=== PATIENT | female | born 1995 | race Caucasian/White ===

== ENCOUNTER 2021-09-06 19:49 | Emergency (ER) | payer MEDICAID, SELFPAY ==
[2021-09-06 19:56] VITALS: BP 136/107; PULSE 89; RESP 20; TEMP 36.2; O2SAT 98
--- NOTE | 2021-09-06 20:00 | DI.RAD_ITS ---
Exam(s) XR SHOULDER LT COMPLETE 2+V EXAM: XR SHOULDER LT COMPLETE 2+V CLINICAL HISTORY: trauma. TECHNIQUE: 2D digital imaging was performed. COMPARISON: No exams were available for comparison FINDINGS: There is a nondisplaced fracture of the greater tuberosity of the humeral head. Small 2 millimeter f racture fragment is seen just above this level. No dislocation of glenohumeral joint. AC joint and clavicle appear unremarkable as does the chromium and coracoid process. IMPRESSION: Nondisplaced fracture of the greater tuberosity of the proximal humerus DATA REPOSITORY: RADIATION DOSE DELIVERED:
--- NOTE | 2021-09-06 20:01 | ED.GENADUL_ITS ---
Discharge Plan Disposition Patient Disposition: HOME Condition: Good Discharge Details Clinical Impression: Closed fracture of greater tuberosity of humerus Primary Care Provider: Unknown,Unknown ED Provider: Priyank Carrillo Meds and New Rx's Prescriptions: New lidocaine 5 % Adhesive Patch,Medicated 1 patch topical DIRECTED Qty: 10 RF: 0 Continued diltiazem HCl 30 mg Tablet 30 mg PO DAILY RF: 0 naproxen 500 mg Tablet 500 mg PO BID RF: 0 Discharge Instructions Additional Instructions: Wear the sling and try not to use your left arm until seen by orthopedics. Call the orthopedic office Wednesday to arrange for follow-up. Ice on and off to help with pain. Lidocaine patches as directed. Continue your naproxen. May also use Tylenol. Return to ED for numbness or weakness involving the arm, discoloration of the arm, other concerns. Stand Alone Forms: Work Release Referrals: [facility] [Provider Group] Medical Decision Making X-ray of the left shoulder obtained. Evidence of greater tuberosity fracture seen. Some suggestion of anterior displacement of the humeral head on Y view. However, radiology feels no evidence of subluxation or dislocation. Case discussed with orthopedic, Dr. Ashford, who reviewed the films and agrees with radiology read. Patient placed in sling and Dr. Ashford requesting limited use of left upper extremity until evaluated by him. Toradol IM given. Lidocaine patch placed on shoulder. Patient will follow up with orthopedic this coming week. Return to ED for any neurologic changes to the arm, discoloration of pain distally, other concerns. HPI General Mode of arrival: ambulatory . Date/Time Provider Initiated Documentation: 09/06/21 20:01 . Limitations to Documentation: no limitations . Information obtained by: patient and RN notes reviewed . HPI Narrative: Patient presents to the ED with left shoulder pain. Patient injured her shoulder 2 days ago while doing a back flip. She has had pain and limited range of motion since then. She is right-hand dominant. She has been trying to work but the pain has become less tolerable. She is afraid she dislocated her shoulder. She denies head or neck injury. She denies chest pain or shortness of breath. She denies any numbness, weakness, distal pain in the left upper extremity. Related Data Home Medications Medication Instructions Recorded Confirmed diltiazem HCl 30 mg PO DAILY 09/06/21 09/06/21 lidocaine 1 patch TOPICAL DIRECTED #10 ea 09/06/21 naproxen 500 mg PO BID 09/06/21 09/06/21 Previous Rx's Medication Instructions Recorded lidocaine 1 patch TOPICAL DIRECTED #10 ea 09/06/21 Allergies Allergy/AdvReac Type Severity Reaction Status Date / Time No Known Allergies Allergy Unverified 09/06/21 19:58 General Stated Complaint: Orthopedic BRODERICK: 3 Review of Systems Narrative: As documented in HPI otherwise negative as below. Const: no fever, chills, weakness Resp: no cough, SOB, pleuritic pain CV: no CP, diaphoresis, edema, syncope GI: no abdominal pain, nausea, vomiting, diarrhea Neuro: no headache, numbness, focal weakness, confusion PFSH Active Problem List Closed fracture of greater tuberosity of humerus (Acute) Medical History Rapid palpitations Social History Smoking/Tobacco Use Status: Never Smoking risk assessment performed?: Yes Alcohol Intake: current Alcohol Intake frequency: a few times a month Alcohol type: beer Drug use: Never Substance use type: does not use Do you feel safe at home: Yes Do you feel safe in your relationship?: Yes Exam Narrative Exam Narrative: Const: WDWN female in NAD. HEENT: NC/AT. Normal facial exam. Eyes: Normal conjunctiva and sclera. Neck: Supple. Trachea midline. Normal ROM. Lungs: Normal respiratory effort. Cor: RRR. Good radial pulses. Neuro: A+O x 3. Normal speech, mentation, gait. Cranial nerves II - XII grossly intact. No gross motor or sensory deficit. Ext: No C/C/E. Left shoulder with significant limitation in range of motion. Tenderness to palpation around the joint itself. No obvious bruising. Swelling and fullness anteriorly. No tenderness along the clavicle. Neurovascularly intact distally. Course Vital Signs Vital signs: Vital Signs Temperature 97.2 F L 09/06/21 19:56 Pulse 89 09/06/21 19:56 Respiratory Rate 20 09/06/21 19:56 Blood Pressure 136/107 H 09/06/21 19:56 Pulse Oximetry 98 09/06/21 19:56 Temperature 97.2 F L 09/06/21 19:56 Temperature Source Temporal Artery Scan 09/06/21 19:56 Pulse 89 09/06/21 19:56 Respiratory Rate 20 09/06/21 19:56 Blood Pressure 136/107 H 09/06/21 19:56 Blood Pressure Position Sitting 09/06/21 19:56 Pulse Oximetry 98 09/06/21 19:56 Oxygen Delivery Method Room Air 09/06/21 19:56 Oxygen Flow Rate 0 09/06/21 19:56 Pain Level 0 09/06/21 19:56
--- NOTE | 2021-09-06 22:12 | DI.VRAD_ITS ---
PROCEDURE INFORMATION: Exam: XR Left Shoulder Exam date and time: 09/06/2021 8:06 PM Age: 26 years old Clinical indication: Other: Trauma TECHNIQUE: Imaging protocol: XR Left shoulder. Views: 2 or more views. COMPARISON: No relevant prior studies available. FINDINGS: Bones/joints: Suggestion of nondisplaced fracture through the greater tuberosity of the proximal humerus. Soft tissues: Normal. IMPRESSION: Suggestion of nondisplaced fracture through the greater tuberosity of the proximal humerus. Dictated and Authenticated by: Hernando Aguirre MD. Ordering:BRITNI Yost MD
[2021-09-06 23:00] VITALS: BP 122/84; PULSE 97; RESP 20; TEMP 36.8; O2SAT 98
== END 2021-09-06 22:54 | disposition home or self-care (01) ==
PROVIDERS: Emergency Provider Emergency Medicine
DX: S42.252A Displaced fracture of greater tuberosity of left humerus, initial encounter for closed fracture (principal); X50.1XXA Overexertion from prolonged static or awkward postures, initial encounter
CPT/HCPCS: 96372; 99284; 73030; 99283

== ENCOUNTER 2021-09-17 13:22 | Outpatient (CLI) | payer MEDICAID, SELFPAY ==
--- NOTE | 2021-09-17 13:15 | DI.RAD_ITS ---
Exam(s) XR SHOULDER LT COMPLETE 2+V EXAM: XR SHOULDER LT COMPLETE 2+V CLINICAL HISTORY: L prox humerus fx. TECHNIQUE: 2D digital imaging was performed of the left shoulder. Five images were obtained. AP, G rashey, Y-view and axillary views were obtained. COMPARISON: CR,XR XR SHOULDER LT COMPLETE 2+V from 09/06/2021 FINDINGS: BONES: There is again seen a comminuted fracture of the greater tuberosity of the left shoulder. The re has been mild displacement of a few of the fracture fragments since the prior examination. No bon y destructive lesion is seen. JOINTS: No dislocation present. SOFT TISSUE: Normal. IMPRESSION: Comminuted mildly displaced fracture involving the greater tuberosity of the proximal humerus. DATA REPOSITORY: RADIATION DOSE DELIVERED:
== END 2021-09-17 13:23 | disposition home or self-care (01) ==
LOC: DIORS 13:22
PROVIDERS: Referring Provider Student in an Organized Health Care Education/Training Program; Visit Provider Physician Assistant
DX: S42.252D Displaced fracture of greater tuberosity of left humerus, subsequent encounter for fracture with routine healing (principal)
CPT/HCPCS: 73030

== ENCOUNTER 2021-09-19 00:38 | Outpatient (CLI) | payer MEDICAID, SELFPAY ==
--- NOTE | 2021-09-19 07:43 | DI.CT_ITS ---
Exam(s) CT UPPER EXTREMITY LT WO EXAM: CT UPPER EXTREMITY LT WO CLINICAL HISTORY: Greater tuberosity fx,,S42.253A. TECHNIQUE: Imaging Protocol: Axial computed tomography images with coronal and sagittal reformatted images were created and reviewed. COMPARISON: CR XR SHOULDER LT COMPLETE 2+V from 09/17/2021 CR XR SHOULDER LT COMPLETE 2+V from 09/17/2021 FINDINGS: Bones: There is a comminuted fracture involving the greater tuberosity. There is mild displacement of several of the fracture fragments. There is some callus formation which has developed suggesting some interval healing. Bony alignment is satisfactory. No cellulitic or osteomyelitic changes are i dentified. There is no evidence of joint space narrowing or cystic degeneration seen. No lytic or sc lerotic lesions are identified. The glenohumeral and acromioclavicular joints are unremarkable. Soft Tissues: Normal. IMPRESSION: Comminuted mildly displaced fracture involving the greater tuberosity. Some callus has developed con sistent with some interval healing. RADIATION DOSE DELIVERED: 944.99mGy.cm Total DLP 944.99mGy.cm Total DLP DATA REPOSITORY: All CT scans at this facility are submitted to the National Radiology Data Registry (NRDR) Dose Index Registry (DIR) with the [employer] (ACR). RADIATION OPTIMIZATION: All CT scans at this facility use at least one of these dose optimization te chniques: automated exposure control; mA and/or kV adjustment per patient size (includes targeted exa ms where dose is matched to clinical indication); or iterative reconstruction.
--- NOTE | 2021-09-19 14:45 | DI.MRI_ITS ---
Exam(s) MR UPPER JOINT LT WO EXAM: MR UPPER JOINT LT WO CLINICAL HISTORY: Greater tuberosity fx,S46.012A,TRAUMATI TEAR LT ROTATOR CUFF. TECHNIQUE: Multiplanar multisequence MRI was performed. COMPARISON: CR XR SHOULDER LT COMPLETE 2+V from 09/17/2021 CR XR SHOULDER LT COMPLETE 2+V from 09/17/2021 FINDINGS: BONES: There is a comminuted fracture of the greater tuberosity with associated marrow edema involvin g the humeral head. JOINTS: The acromioclavicular joint is normal. The glenohumeral joint is normal. TENDONS: Supraspinatus: There is hyperintense signal seen in the supraspinatus tendon suggestive of a partial tear. Infraspinatus: Unremarkable. Subscapularis: Unremarkable. Teres Minor: Unremarkable. Biceps and [place]: Unremarkable. MUSCLES: Unremarkable. GLENOID LABRUM: Unremarkable on this noncontrast examination. SOFT TISSUES: There is mild edema seen in the soft tissues adjacent to the greater tuberosity fractur e. No soft tissue mass is appreciated. LIGAMENTS: Unremarkable. OTHER: Subacromial and subdeltoid bursae are unremarkable. IMPRESSION: 1. Comminuted fracture involving the greater tuberosity. 2. Abnormal signal seen in the supraspinatus tendon at its insertion site suspicious for partial tear . DATA REPOSITORY:
== END 2021-09-19 00:58 ==
PROVIDERS: Visit Provider Student in an Organized Health Care Education/Training Program
DX: S42.252A Displaced fracture of greater tuberosity of left humerus, initial encounter for closed fracture (principal); S46.012A Strain of muscle(s) and tendon(s) of the rotator cuff of left shoulder, initial encounter; X58.XXXA Exposure to other specified factors, initial encounter
CPT/HCPCS: 73200; 73221

== ENCOUNTER 2025-06-03 14:01 | Inpatient (IN) | payer SELFPAY ==
[2025-06-03 14:03] VITALS: BP 130/90; PULSE 114; RESP 20; TEMP 37.1; O2SAT 97
[2025-06-03 14:13] VITALS: BP 130/90; PULSE 114; RESP 20; TEMP 37.1; O2SAT 97
--- NOTE | 2025-06-03 14:15 | DI.CT_ITS ---
Exam(s) CT NECK W EXAM: CT NECK W INDICATION: L. cheek and neck swelling, eval deep space absces. COMPARISON: No exams were available for comparison TECHNIQUE: Intravenous contrast: 100 cc Omnipaque 350 FINDINGS: VISUALIZED PARANASAL SINUSES: Small polyps or retention cyst in the medial wall the left maxillary sinus and floor of the right maxillary sinus. No associated fluid levels nor bone dehiscence. Other paranasal sinuses and ethmoidal air cells are clear as are the mastoid air cells. NASOPHARYNX: Unremarkable ORODENTAL: No periapical lucencies. Maxillary bone and mandible appear unremarkable. TM joints unremarkable. OROPHARYNX: Unremarkable. No masses evident. HYPOPHARYNX: Unremarkable. Valleculae and epiglottis and aryepiglottic folds appear normal. VOCAL CORDS: Unremarkable. No masses evident. Subglottic airway appears unremarkable. THYROID GLAND: Unremarkable. Normal size and no obvious nodules. SALIVARY GLANDS: Unremarkable. No significant findings in the parotid and submandibular glands. LYMPH NODES: There is no adenopathy evident in the neck and supraclavicular regions. OTHER: There is some edema in the lower left face cheek region with cellulitis pattern and there is some asymmetric thickening of the ipsilateral left platysma muscle. No drainable abscess at this level which is mostly anterior to the left masseter. Edema extends below the mandible but there does not appear to be deep space abscess. Right nasal piercing noted without inflammatory process at this level noted. VISUALIZED LUNG APICES: No significant findings. IMPRESSION: 1. Large area of inflammation left side of the face and perimandibular region which has a cellulitis-type pattern as well as prominent subcutaneous edema and thickening of the ipsilateral left platysma muscle. This does not appear of odontogenic in origin. There is no radiopaque foreign body in the subcutaneous tissues and the nasal piercing is on the opposite-right side of the face and unrelated to this left-sided facial finding. 2. Close follow-up recommended given the amount of induration here. Findings called by myself to ER physician 06/03/2025 at 4:48 p.m. RADIATION DOSE DELIVERED: 363.52mGy.cm Total DLP DATA REPOSITORY: All CT scans at this facility are submitted to the National Radiology Data Registry (NRDR) Dose Index Registry (DIR) with the [employer] (ACR). RADIATION OPTIMIZATION: All CT scans at this facility use at least one of these dose optimization techniques: automated exposure control; mA and/or kV adjustment per patient size (includes targeted exams where dose is matched to clinical indication); or iterative reconstruction.
--- NOTE | 2025-06-03 14:30 | ED.GENADUL_ITS ---
Discharge Plan Disposition Patient Disposition: Admit to [facility] Condition: Fair Discharge Details Clinical Impression: Facial cellulitis, Cellulitis of neck Primary Care Provider: None,None ED Provider: Margy Greene Home Meds and New Rx's Prescriptions: No Action diltiazem HCl 30 mg Tablet 30 mg PO DAILY Rx Instructions: unknown dose naproxen 500 mg Tablet 500 mg PO BID [facility] General Mode of arrival: ambulatory . Date/Time Provider Initiated Documentation: 06/03/25 14:08 . Limitations to Documentation: no limitations . Information obtained by: patient and old records reviewed . HPI Narrative: This is a 30-year-old female patient with a past medical history significant for nonspecific tachycardia, presenting for evaluation of left-sided facial and neck swelling. The patient reports that a few days ago she had a pimple on her lower left cheek which she popped. The next day she had worsening swelling and pain, presented to [facility] where she received a dose of Rocephin and then was discharged on doxycycline, which she has taken 1 dose of. She reports that she had significant worsening of her pain and swelling, and it now feels like it is tracking into the bottom of her mouth and into her neck. She states that she has been using Tylenol and ibuprofen fairly consistently [id number], has not appreciated fever, has pain with swallowing but has been able to swallow liquids. She has no history of poor dentition in that region, does not have pain with eye movement, but does have reproduction of pain with neck movement. No history of allergies to antibiosis, did have a facial abscess several years ago. Related Data Home Medications ?Medication ?Instructions ?Recorded ?Confirmed diltiazem HCl 30 mg tablet 30 mg PO DAILY 09/06/21 naproxen 500 mg tablet 500 mg PO BID 09/06/2106/03 Allergies Allergy/AdvReac Type Severity Reaction Status Date / Time No Known Allergies Allergy Unverified 06/03/25 14:13 General Stated Complaint: Cellulitis BRODERICK: 3 Exam Narrative Exam Narrative: Gen: Awake and alert, in no apparent distress HEENT: Non-icteric sclera, PERRL, EOMs are full and without entrapment or nystagmus. The patient has notable swelling to the inferior aspect of the left cheek, and approximately 1 cm wound consistent with a popped pustule. She has tenderness to palpation over this tissue, which is indurated and warm. She has trismus, mild, able to open her mouth about 2 finger widths. She has tenderness and swelling of the inner/buccal aspect of the left cheek, and some mild induration and tenderness to the left sided floor of the mouth. She has swelling into the anterior left cervical region. Posterior pharynx not able to be fully visualized, no periapical abscesses appreciated, no purulence expressed with palpation of the parotid gland. Neck: Supple swelling as noted above, full range of motion without meningismus, Lungs: No apparent respiratory distress, normal respiratory effort. Lung sounds clear and equal bilaterally, no wheezing, rhonchi, rales. CV: Appears well perfused, heart with tachycardic rate but regular rhythm, strong distal pulses Abdomen: Non-distended MSK: Moves 4 extremities without apparent limitation in ROM Skin: Visualized skin without rashes, cyanosis. Neuro: Normal Gait, no obvious focal deficits or facial asymmetry. Speaks in full, clear sentences. Psych: Appropriate for situation. Course Vital Signs Vital signs: Vital Signs Temperature 37.1 C 06/03/25 14:03 Pulse 114 H 06/03/25 14:03 Respiratory Rate 20 06/03/25 14:03 Blood Pressure 130/90 06/03/25 14:03 Pulse Oximetry 97 06/03/25 14:03 Temperature 37.1 C 06/03/25 14:13 Temperature Source Oral 06/03/25 14:13 Pulse 114 H 06/03/25 14:13 Respiratory Rate 20 06/03/25 14:13 Blood Pressure 130/90 06/03/25 14:13 Blood Pressure Position Sitting 06/03/25 14:13 Pulse Oximetry 97 06/03/25 14:13 Oxygen Delivery Method Room Air 06/03/25 14:13 Pain Level 7 06/03/25 14:13 Medical Decision Making This is a 30-year-old female patient presenting for evaluation of left-sided facial and neck swelling worsening despite antibiosis. Differential includes but is not limited to abscess, cellulitis, certainly considered retropharyngeal abscess, Paul's angina, peritonsillar abscess. Considered sepsis and bacteremia, though this patient endorses a history of baseline tachycardia, and at this time does not have SIRS criteria. Consider metabolic/electrolyte derangements, anemia, dehydration, kidney injury, liver injury. No neurodeficits appreciated to suggest cavernous sinus thrombosis, did consider septic thrombophlebitis. We will obtain blood cultures, labs to include CBC, CMP, magnesium, lactate, and will proceed with CT soft tissue neck with contrast. Given the worsening and involvement of the floor of the mouth with associated trismus and pain with swallowing, it is reasonable to provide this patient with antibiosis for coverage of Paul's angina to include Zosyn and vancomycin. At this time the patient does not require emergent airway management. - I reviewed the patient's CT scan, which shows left lower facial and perimandibular cellulitis without discrete abscess. I do not note any impingement or obstruction of the airway. I reviewed the patient's laboratory studies, which show a leukocytosis to 18, with no anemia. Platelet aggregation prevents typical count, smear reported as normal appearance in number, will require redraw. Lactate low at 1.2, metabolic panel without electrolyte derangement, kidney injury, or evidence of liver disease. I discussed the findings with the patient, who initially was stating that she would not stay in the hospital, and I shared my concerns for failure of outpatient oral therapy, worsening of cellulitis and the potential for progress ion to abscess, airway involvement, etc. I did provide her with a dose of Dilaudid for ongoing pain despite maximal Tylenol and ibuprofen prior to arrival. I offered the patient a nicotine patch which she declined several times. Ultimately, the patient is amenable to admission, and I reached out to the hospitalist who has graciously accepted this patient to their service for ongoing intravenous antibiosis. She will require referral to primary care prior to discharge. She remained hemodynamically appropriate, though with continued tachycardia throughout her time in the ED. Transferred from my service without incident. Margy Greene MD [facility] All Active Problems (Updated 06/03/25 @ 16:45 by Charlie Sorenson MD) Sepsis due to cellulitis (Acute) Cellulitis of neck (Acute) Facial cellulitis (Acute) No-show for appointment (Acute) Traumatic tear of left rotator cuff (Acute 09/04/21) Closed fracture of greater tuberosity of humerus (Acute 09/04/21) Active Problem List Closed fracture of greater tuberosity of humerus (Acute) Medical History Rapid palpitations Social History Smoking/Tobacco Use Status: Former Tobacco Use Smoking risk assessment performed?: Yes Alcohol Intake: current Alcohol Intake frequency: a few times a month Alcohol type: beer Drug use: Never Substance use type: does not use Current gender identity: female Do you feel safe at home: Yes Do you feel safe in your relationship?: Yes
[2025-06-03 14:57] LABS: Abs Immature Grans 0.08 10^3/uL (0.0-0.06); HCT 46.2 % (36.0-46.0); HGB 15.2 g/dL (11.2-15.7); Immature Grans % 0.4 %; MCH 29.6 pg (27.0-33.0); MCHC 32.9 % (32.0-36.0); MCV 90 fL (80-95); RBC 5.13 10^6/uL (3.93-5.22); RDW 12.7 % (11.7-14.6); RDW-SD 42.5 fL; WBC 18.48 10^3/uL (4.4-10.8)
[2025-06-03 15:13] LABS: ALT 25 U/L (14-59); AST 8 U/L (15-37); Albumin 4.1 g/dL (3.4-5.0); Alkaline Phosphatase 127 U/L (46-116); Anion Gap 8.4 mmol/L (3-11); BUN 8 mg/dL (7-18); Bilirubin, Total 0.3 mg/dL (0.2-1.0); CO2 27.6 mmol/L (21.0-32.0); Calcium 10.0 mg/dL (8.5-10.1); Chloride 100 mmol/L (98-107); Estimated GFR 120.74 (mL/min/1.73m2); Glucose 95 mg/dL (74-106); Magnesium 2.3 mg/dL (1.8-2.4); Potassium 4.3 mmol/L (3.5-5.1); Sodium 136 mmol/L (136-145); Total Protein 8.6 g/dL (6.4-8.2)
[2025-06-03] MEDS: PIPERACILLIN/TAZO 4.5 GM in Normal Saline 100 ML IVPB ×2 (15:42→21:11)
[2025-06-03] MEDS: VANCOMYCIN 2,000 MG in Normal Saline 500 ML 250 MG IVPB (15:46)
[2025-06-03] MEDS: Nicotine 21 MG/24 HR PATCH TD (16:07)
[2025-06-03] MEDS: HYDROmorphone 2 MG/ML SYR 0.5 MG IVP ×2 (16:07→23:11)
--- NOTE | 2025-06-03 16:28 | DI.VRAD_ITS ---
PROCEDURE INFORMATION: Exam: CT Neck With Contrast Exam date and time: 06/03/2025 3:02 PM Age: 30 years old Clinical indication: Neck pain; Additional info: L. Cheek and neck swelling, eval deep space absces TECHNIQUE: Imaging protocol: Computed tomography of the neck with contrast. COMPARISON: MR UPPER JOINT LT WO 09/19/2021 2:18 PM FINDINGS: Salivary glands: Normal. Glands are normal in size. Teeth: No definite evidence for odontogenic disease. Pharynx: Unremarkable. No significant tonsillar enlargement. Larynx: Unremarkable. Epiglottis is normal. Thyroid: Normal. No enlarged or calcified nodules. Trachea: Visualized trachea is unremarkable. Lungs: Unremarkable as visualized. Lymph nodes: There is mild bilateral carotid space adenopathy. Bones/joints: Unremarkable. No acute fracture. Soft tissues: There is left lower facial skin and subcutaneous edema. There is asymmetric thickening of the platysmas muscle. There is no drainable collection identified. Right nasal piercing. IMPRESSION: Left lower facial and perimandibular cellulitis. No evidence for abscess. Dictated and Authenticated by: Sidra Barlow MD. Orderin St. Grayson Ji MD
--- NOTE | 2025-06-03 16:37 | W.PM.HP.N ---
Date of service: 06/03/25 Time of Service: 16:37 Assessment and Plan Assessment and plan (1) Sepsis due to cellulitis: Status: Acute Assessment and plan: - Patient meets criteria for sepsis with a heart rate of 110, but blood cell count of 18 and source of infection being left-sided facial cellulitis - CT showed cellulitis without abscess - Was started on vancomycin and Zosyn in the emergency department, will continue - Follow-up a.m. CBC - Patient did not meet criteria for severe sepsis as there were no signs of endorgan damage - Follow-up blood culture results History of Present Illness History of Present Illness Chief Complaint: left facial swelling Narrative: 30-year-old female presents the emergency department with left-sided facial swelling. She states that last night she went to [facility] after experiencing left-sided facial swelling that began a few days ago after popping a pimple on her left side. When she was at [facility] she was prescribed doxycycline which she took 1 dose of. However, she states that the swelling in the left side of her face has gotten significantly worse and she feels it is tracking into her jaw area. She also states that she feels like her heart is racing, but she denies any fevers, lightheadedness, dizziness, chest pain, difficulty breathing, nausea vomiting or diarrhea. In the emergency department the patient was noted to have a heart rate about 110 with otherwise normal vital signs and inability to protect her airway. She was noted as having significant swelling of the left side of her face and neck. CBC was remarkable for a white blood cell count of 18 but remainder CBC and a CMP was unremarkable and lactic acid was negative. However, patient had CT of neck and face that did not show significant left lower facial and mandibular cellulitis without abscess. Patient was given vancomycin and Zosyn in emergency room provider paged hospitalist for admission for patient with sepsis secondary to facial cellulitis. Review of Systems All systems reviewed & are unremarkable except as noted in HPI and below PFSH All Active Problems (Updated 06/03/25 @ 16:45 by Charlie Sorenson MD) Sepsis due to cellulitis (Acute) Cellulitis of neck (Acute) Facial cellulitis (Acute) No-show for appointment (Acute) Traumatic tear of left rotator cuff (Acute 09/04/21) Closed fracture of greater tuberosity of humerus (Acute 11/25/21) Active Problem List Closed fracture of greater tuberosity of humerus (Acute) Medical History Rapid palpitations Social History Smoking/Tobacco Use Status: Former Tobacco Use Smoking risk assessment performed?: Yes Alcohol Intake: current Alcohol Intake frequency: a few times a month Alcohol type: beer Drug use: Never Substance use type: does not use Current gender identity: female Do you feel safe at home: Yes Do you feel safe in your relationship?: Yes Meds Allergies and Home Medications Allergies Allergy/AdvReac Type Severity Reaction Status Date / Time No Known Allergies Allergy Unverified 06/03/25 14:13 Home Medications ?Medication ?Instructions ?Recorded ?Confirmed ?Type diltiazem HCl 30 mg tablet 30 mg PO DAILY 09/06/21 06/03/25 History naproxen 500 mg tablet 500 mg PO BID 09/06/21 06/03/25 History Exam Narrative Exam Narrative: Well-appearing young female sitting up in the chair no acute distress, ANO x 4, heart regular rhythm, lungs on auscultation bilaterally, abdomen soft, nontender, nondistended, significant swelling of the left lower face in the area of the mandible with some erythema surrounding healed over area of excoriation Results Labs 06/03/25 14:45 06/03/25 14:45 Labs: Laboratory Results - last 24 hr 06/03/25 14:45 WBC 18.48 H RBC 5.13 Hgb 15.2 Hct 46.2 H MCV 90 MCH 29.6 MCHC 32.9 RDW 12.7 Plt Count MPV Immature Gran % 0.4 Neutrophils % 79.0 Lymphocytes % 11.8 Monocytes % 7.9 Eosinophils % 0.6 Basophils % 0.3 Nucleated RBC % 0.0 Absolute Neutrophils 14.60 H Absolute Lymphocytes 2.18 Absolute Monocytes 1.46 H Absolute Eosinophils 0.11 Absolute Basophils 0.06 VBG Lactate 1.2 Sodium 136 Potassium 4.3 Chloride 100 Carbon Dioxide 27.6 Anion Gap 8.4 BUN 8 Creatinine 0.7 Est GFR (CKD-EPI 2020) 120.74 Glucose 95 Calcium 10.0 Magnesium 2.3 Total Bilirubin 0.3 AST 8 L ALT 25 Alkaline Phosphatase 127 H Total Protein 8.6 H Albumin 4.1 Last Vital Signs Temp 98.8 F 06/03/25 14:13 Pulse 114 H 06/03/25 14:13 Resp 20 06/03/25 14:13 BP 130/90 06/03/25 14:13 Pulse Ox 97 06/03/25 14:13 Time Spent Time spent with Patient: >75 minutes Time was spent: preparing to see the patient(eg.review tests), obtaining and/or reviewing separately otained hiistory, ordering medications,tests, procedures, referring, communicating with other health rn urgent care, indepentently interpreting results, counseling the patient and care coordination
--- NOTE | 2025-06-03 17:16 | W.PC.ACHO ---
Registration Status: REG ER Primary Language: Preferred Language: ED Information & Data Chief Complaint Cellulitis 06/03/25 14:30 Triage Note Patient presented with 06/03/25 14:03 swelling to the left side of her cheek. State she initially thought it was a pimple and she popped it about Wednesday night. she woke up Wednesday morning and it got worst she went to the ER in [facility] last night and she received IV antibiotics went PO antibiotics for home but today it has gotten bigger and now having pain radiating into her neck and behind her left ears also to her eye Medical / Surgical History (Last Reviewed 09/07/21 @ 02:12 by Priyank Carrillo MD) Rapid palpitations Most Recent Vital Signs Temperature 37.1 C 06/03/25 14:13 Temperature Source Oral 06/03/25 14:13 Pulse 114 H 06/03/25 14:13 Respiratory Rate 20 06/03/25 14:13 Blood Pressure 130/90 06/03/25 14:13 Blood Pressure Position Sitting 06/03/25 14:13 Pulse Oximetry 97 06/03/25 14:13 Oxygen Delivery Method Room Air 06/03/25 14:13 Pain Level 7 06/03/25 14:13 Allergies No Known Allergies Allergy (Unverified 06/03/25 14:13) Active Medications Generic Name Dose Route Start Last Admin Trade Name Nancy PRN Reason Stop Dose Admin Vancomycin HCl 2,000 mg/ 500 mls @ 250 mls/hr 06/03/25 16:00 06/03/25 15:46 Sodium Chloride IVPB 06/03/25 17:59 250 mls/hr NOW ONE Administration IV IV Catheter Type [Right Saline Lock Antecubital] IV Catheter Gauge [Right 20 Antecubital] Diagnostics 06/03/25 Range/Units 14:45 WBC 18.48 H (4.4-10.8) 10^3/uL RBC 5.13 (3.93-5.22) 10^6/uL Hgb 15.2 (11.2-15.7) g/dL Hct 46.2 H (36.0-46.0) % MCV 90 (80-95) fL MCH 29.6 (27.0-33.0) pg MCHC 32.9 (32.0-36.0) % RDW 12.7 (11.7-14.6) % Plt Count (130-400) 10^3/uL MPV (8.0-11.0) fL Immature Gran % 0.4 % Neutrophils % 79.0 % Lymphocytes % 11.8 % Monocytes % 7.9 % Eosinophils % 0.6 % Basophils % 0.3 % Nucleated RBC % 0.0 (0.0-0.3) % Absolute Neutrophils 14.60 H (1.2-6.7) 10^3/uL Absolute Lymphocytes 2.18 (1.2-3.4) 10^3/uL Absolute Monocytes 1.46 H (0.1-0.8) 10^3/uL Absolute Eosinophils 0.11 (0.0-0.7) 10^3/uL Absolute Basophils 0.06 (0.0-0.2) 10^3/uL VBG Lactate 1.2 (<or=2.0) mmol/L Sodium 136 (136-145) mmol/L Potassium 4.3 (3.5-5.1) mmol/L Chloride 100 (98-107) mmol/L Carbon Dioxide 27.6 (21.0-32.0) mmol/L Anion Gap 8.4 (3-11) mmol/L BUN 8 (7-18) mg/dL Creatinine 0.7 (0.55-1.02) mg/dL Est GFR (CKD-EPI 2020) 120.74 (mL/min/1.73m2) Glucose 95 (74-106) mg/dL Calcium 10.0 (8.5-10.1) mg/dL Magnesium 2.3 (1.8-2.4) mg/dL Total Bilirubin 0.3 (0.2-1.0) mg/dL AST 8 L (15-37) U/L ALT 25 (14-59) U/L Alkaline Phosphatase 127 H (46-116) U/L Total Protein 8.6 H (6.4-8.2) g/dL Albumin 4.1 (3.4-5.0) g/dL 06/03/25 15:00 Blood Culture - Pending Blood 06/03/25 14:45 Blood Culture - Pending Blood [id number] Documentation POC Urine Test Start: 06/03/25 15:04 Freq: .Urine Test Status: Active Protocol: Activity Type Activity Date Activity User E-sign Co-sign Detail Recorded Client Recorded Date Recorded By Document 06/03/25 15:48 NF [id number] 06/03/25 15:48 NF Intake and Output - 24 Hour Total 06/03/25 14:01 thru 06/03/25 14:03 Weight 94.75 kg Falls Risk Assessment History of Falls No History 06/03/25 15:49 Contributing Factors No Factors 06/03/25 15:49 Ambulatory Aids Independent 06/03/25 15:49 Tubes/Lines None 06/03/25 15:49 Gait Evaluation No gait disturbance 06/03/25 15:49 Cognition No cognitive impairment 06/03/25 15:49 Fall Total Score 0 06/03/25 15:49 Level of Risk Standard/Low Risk 06/03/25 15:49 Problems (Last Reviewed 09/07/21 @ 02:12 by Priyank Carrillo MD) Sepsis due to cellulitis (Acute) v v v v v v v v v Sending and/or Receiving Nurses: Please use comment section below to note any information pertinent to the patient hand-off not included above. Information / Comments: Report received from: RNLauren, received report from the ED at 1715 from Ella Kang. Patient is stable and is currently in transit to the medical surgical unit.
[2025-06-03 17:50] VITALS: BP 133/77; PULSE 96; RESP 18; TEMP 37.2; O2SAT 97
[2025-06-03 19:22] VITALS: BP 119/69; PULSE 109; RESP 16; TEMP 36.9; O2SAT 98
[2025-06-03] MEDS: Normal Saline Flush 10 ML SYR IVP (21:10)
[2025-06-03] MEDS: Acetaminophen 325 MG TAB 650 MG PO (21:53)
[2025-06-04 00:13] VITALS: BP 116/81; PULSE 104; RESP 16; TEMP 36.7; O2SAT 98
--- NOTE | 2025-06-04 02:21 | NUR.NOTE ---
Nursing Note: Pt's s/o to the floor for the night d/t pt having anxiety. Friend of pt arrived to the hospital around 0000 to drop off personal items, staff retrieved d/t late hour. Access called, stated friend was unable to leave d/t not having enough gas money to get home. Pt and s/o informed, they stated they did not have money to give them, however we could give them the car keys. Car keys given to security to bring to friend. Access called back to the floor, stating friend was still looking for gas money, at which time, security got involved, as pt and s/o continued to report the inability to provide money. Security to the floor to speak with pt and s/o; they stated friends have been in the car since pts arrival to the ED, as she wasn't aware she would be admitted. Friends are okay to sit in her car until AM, if they are asked to leave, pt states she will leave AMA. HS aware of situation at this time, as well as VSP if issue begins to escalate.
[2025-06-04 03:46] VITALS: BP 140/95; PULSE 100; RESP 14; TEMP 36.7; O2SAT 99
[2025-06-04] MEDS: HYDROmorphone 2 MG/ML SYR 0.5 MG IVP (04:31)
[2025-06-04] MEDS: VANCOMYCIN 1,500 MG in Normal Saline 250 ML 166.6666 MG IVPB (04:31)
[2025-06-04 07:02] LABS: HCT 42.0 % (36.0-46.0); HGB 13.3 g/dL (11.2-15.7); MCH 29.2 pg (27.0-33.0); MCHC 31.7 % (32.0-36.0); MCV 92 fL (80-95); MPV 10.7 fL (8.0-11.0); Platelet Count 123 10^3/uL (130-400); RBC 4.56 10^6/uL (3.93-5.22); RDW 12.9 % (11.7-14.6); RDW-SD 43.9 fL; WBC 12.63 10^3/uL (4.4-10.8)
[2025-06-04 07:21] LABS: Anion Gap 7.2 mmol/L (3-11); BUN 12 mg/dL (7-18); CO2 28.8 mmol/L (21.0-32.0); Calcium 9.3 mg/dL (8.5-10.1); Chloride 103 mmol/L (98-107); Estimated GFR 120.74 (mL/min/1.73m2); Glucose 110 mg/dL (74-106); Magnesium 2.3 mg/dL (1.8-2.4); Potassium 4.2 mmol/L (3.5-5.1); Sodium 139 mmol/L (136-145)
--- NOTE | 2025-06-04 09:35 | INITIAL_ITS ---
Date of service: 06/04/25 Time of Service: 09:35 Care Management Initial Assmt Initial Assessment Reason for Hospitalization: Sepsis due to Cellulitis Functional Status/Living Situation Patient Presentation: Mel was awake and lying in bed with her hand covering her eyes when CM met with her. 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 She also has a car and reliable transportation. She is currently unemployed but reports having worked in 5 different locations. Patient denies having any family or friends and stated that she doesn't like people and declined to provide any further information. CM will continue to follow and assess for supports, resources and discharge planning needs. Of note, patient is currently in self-pay status and may benefit from a referral to [facility] to discuss eligibility medical coverage and other resources. Also, it is also unclear if patient has a PCP, CM will review tomorrow. Town of Residence: [place] Resides with: Alone Employment Status: Unemployed Instrumental Activities of Daily Living (ADLs): Independent Advance Directives Advance Directives: Do you have an Advance Directive: N , 13:09 AD On File at [facility]: N 09/17/21, 13:09 Date Asked 06/03/25 06/03/25, 14:07 AD Date Reviewed COLST On File at [facility] No 06/03/25, 15:21 COLST Date Scanned Code Status Resuscitation Status Full Code Insurance Coverage/Financial Issues Insurance: Self pay, (CM plans to place a referral to [facility] with pts permission) Care Team Visit Care Team Role Provider Type None None Primary Care Provider NON-[facility] STAFF PHYSICIAN Margy Greene MD Emergency Provider [facility] STAFF PHYSICIAN Charlie Sorenson MD Admit Provider [facility] STAFF PHYSICIAN Attending Provider Discharge Potential Discharge Needs: PCP F/U Appt Patient/Family Education Needs: Review discharge instructions, discuss Ask Me Three Transportation: Private vehicle Plan: Anticipate, Mel will discharge to the community once medically cleared for discharge. She will likely be driven via private vehicle vs. RCT. Pt will follow up with community providers and discharge plan of care as directed. She is self pay, and will likely be sent home with a RX for PO ABX. Will be offered a t-doc follow up, if she doesn't have a PCP already established. Patient is currently unemployed and may benefit from increased supports in the community. CM will follow. Social Determinants of Health Screening Social Determinants of health last assessed in clinic: 06/04/25 Will the Patient Participate in the Screening?: Yes Do you worry about having a steady place to live?: no Problems where you live: no known problems In the past 12 months, have you had to go without electric, gas, oil or water in your home?: no 1. Within the past 12 months, we worried whether our food would run out before we got money to buy more.: Never true 2. Within the past 12 months, the food we bought just didn't last and we didn't have money to get more.: Never true Has lack of transportation kept you from medical appointments or from doing things needed for daily living?: yes Has anyone in your life made you feel unsafe or unsupported?: no How hard is it for you to pay for the very basics like food, housing, medical care, and heating? Would you say it is:: Not hard at all Do you want help finding or keeping work or a job?: I do not need or want help If for any reason you need help with day-to-day activities such as bathing, preparing meals, shopping, managing finances, etc., do you get the help you need?: I don?t need any help How often do you feel lonely or isolated from those around you?: Sometimes Do you speak a language other than Lithuanian at home?: No Does the patient want assistance with any of the above?: No Health Related Social Needs Health related social needs: transportation insecurity (Z59.82) and feeling lonely/isolated (Z60.8) [facility] All Active Problems (Updated 06/03/25 @ 16:45 by Charlie Sorenson MD) Sepsis due to cellulitis (Acute) Cellulitis of neck (Acute) Facial cellulitis (Acute) No-show for appointment (Acute) Traumatic tear of left rotator cuff (Acute 09/04/21) Closed fracture of greater tuberosity of humerus (Acute 09/04/21) Active Problem List Closed fracture of greater tuberosity of humerus (Acute) Medical History Rapid palpitations Social History Smoking/Tobacco Use Status: Current every day Tobacco Type: cigarettes Tobacco: How many years used: 15 Smoking risk assessment performed?: Yes Alcohol Intake: former Drug use: Never Substance use type: does not use Housing: house Current gender identity: female Do you feel safe at home: Yes Do you feel safe in your relationship?: Yes
[2025-06-04] MEDS: Enoxaparin 40 MG/0.4 ML SYR SC (09:36)
[2025-06-04] MEDS: Normal Saline Flush 10 ML SYR IVP ×2 (09:38→21:14)
[2025-06-04 10:28] LABS: Vancomycin, Random 20.5 ug/mL
[2025-06-04 12:08] VITALS: BP 125/74; PULSE 78; RESP 17; TEMP 36.4; O2SAT 95
--- NOTE | 2025-06-04 13:00 | W.PM.PROGNOT ---
Date of Service Date of service: 06/04/25 Time of Service: 13:00 Assessment and Plan Assessment and plan (1) Sepsis due to cellulitis: Status: Acute Assessment and plan: - Patient meets criteria for sepsis with a heart rate of 110, but blood cell count of 18 and source of infection being left-sided facial cellulitis - CT showed cellulitis without abscess - Was started on vancomycin and Zosyn in the emergency department, will continue - White blood cell count down to 12 on the morning of 06/04/2025 - Patient did not meet criteria for severe sepsis as there were no signs of endorgan damage - Follow-up blood culture results Subjective Subjective Interval history since last seen: Patient states that she is feeling little better though the excoriation on her face is beginning to drain some purulent fluid though there is no surrounding fluctuation Exam Narrative Exam Narrative: Well-appearing young female sitting up in the chair no acute distress, ANO x 4, heart regular rhythm, lungs on auscultation bilaterally, abdomen soft, nontender, nondistended, significant swelling of the left lower face in the area of the mandible with some erythema surrounding healed over previously noted excoriation now draining some mildly purulent material without palpable fluctuation Objective Last Vital Signs Temp 97.5 F L 06/04/25 12:08 Pulse 78 06/04/25 12:08 Resp 17 06/04/25 12:08 BP 125/74 06/04/25 12:08 Pulse Ox 95 06/04/25 12:08 Laboratory Results - last 24 hr 06/03/25 06/04/25 06/04/25 14:45 06:10 09:00 WBC 18.48 H 12.63 H RBC 5.13 4.56 Hgb 15.2 13.3 Hct 46.2 H 42.0 MCV 90 92 MCH 29.6 29.2 MCHC 32.9 31.7 L RDW 12.7 12.9 Plt Count 123 L MPV 10.7 Immature Gran % 0.4 Neutrophils % 79.0 Lymphocytes % 11.8 Monocytes % 7.9 Eosinophils % 0.6 Basophils % 0.3 Nucleated RBC % 0.0 Absolute Neutrophils 14.60 H Absolute Lymphocytes 2.18 Absolute Monocytes 1.46 H Absolute Eosinophils 0.11 Absolute Basophils 0.06 VBG Lactate 1.2 Sodium 136 139 Potassium 4.3 4.2 Chloride 100 103 Carbon Dioxide 27.6 28.8 Anion Gap 8.4 7.2 BUN 8 12 Creatinine 0.7 0.7 Est GFR (CKD-EPI 2020) 120.74 120.74 Glucose 95 110 H Calcium 10.0 9.3 Magnesium 2.3 2.3 Total Bilirubin 0.3 AST 8 L ALT 25 Alkaline Phosphatase 127 H Total Protein 8.6 H Albumin 4.1 Random Vancomycin Cancelled 20.5 Time Spent with Patient Time Spent with Patient: >50 minutes Time was spent: preparing to see the patient(eg.review tests), obtaining and/or reviewing separately otained hiistory, ordering medications,tests, procedures, referring, communicating with other health physician locums urgent care, indepentently interpreting results, counseling the patient and care coordination
[2025-06-04] MEDS: VANCOMYCIN/WATER (PEG) 1.5 GM/300 ML BAG IVPB (16:24)
[2025-06-04 18:10] VITALS: BP 107/62; PULSE 80; RESP 17; TEMP 36.8; O2SAT 97
[2025-06-04 19:06] VITALS: BP 108/63; PULSE 64; RESP 16; TEMP 36.8; O2SAT 99
[2025-06-04 23:16] VITALS: BP 112/68; PULSE 67; RESP 17; TEMP 36.5; O2SAT 100
--- NOTE | 2025-06-05 06:21 | DSE_ITS ---
Date of service: 06/05/25 Time of Service: 06:22 DS: Diagnosis Discharge Diagnosis (1) Sepsis due to cellulitis: Status: Acute Discharge Plan Disposition Patient Disposition: Against Medical Advice Condition: Good Discharge Details Reason For Visit: Sepsis Cellulitis Admit Date/Time: 06/03/25 16:37 Admit Provider: Charlie Sorenson Attending Provider: Charlie Sorenson Primary Care Provider: None,None Hospital Course Hospital Course: Patient presented to the hospital with worsening left facial cellulitis and sepsis after initially being seen at [facility] the night before being started on doxycycline. CT was done in the emergency department and only showed cellulitis without any signs of abscess she was put on vancomycin and cefepime and had improvement of her white count and some improvement of the swelling of the left side of her face. However, early in the morning of 06/05/2025 the patient left against medical vice abruptly as she was upset that her significant other was not allowed to visit. Nursing staff explained to the patient that she would be leaving AGAINST MEDICAL ADVICE and is risking worsening of her cellulitis. Despite patient leaving AGAINST MEDICAL ADVICE, clindamycin is being sent to her pharmacy for an additional 5 days of treatment. Home Meds and New Rx's Prescriptions: New sulfamethoxazole-trimethoprim [Bactrim DS] 800-160 mg tablet 1 tab PO BID Qty: 10 0RF Discontinued diltiazem HCl 30 mg Tablet 30 mg PO DAILY Rx Instructions: unknown dose naproxen 500 mg Tablet 500 mg PO BID Discharge Instructions Activity:: Activity as Tolerated Equipment/Supplies:: No Equipment Needed Diet:: As Tolerated Discharge Orders Discharge Orders: Discharge Order (Routine); Ordered 06/05/25 Ordered By: Charlie Sorenson Discharge Data Discharge Date/Time-TO BE ENTERED AT DEPARTURE: 06/05/25 03:15 Discharge Comment: Pt left AMA. IV removed, provider and HS aware DS: Summary Time Spent with Patient providing and/or coordinating discharge services: Greater than 30 minutes Status at Discharge Functional status at discharge: independent ambulation Overall status at discharge: patient is not back to baseline Mental Status: mental status grossly normal Speech and Movement: speech and movement normal Mood: congruent mood Affect: normal affect Quality:SDOH Health Related Social Needs: Health related social needs transpo insecurity lonely/ isolated Exam Narrative Exam Narrative: Patient abruptly left AMA before being able to examine her Psych Mental Status: mental status grossly normal Speech and Movement: speech and movement normal Mood: congruent mood Affect: normal affect DS: Data Vitals/I&O Vitals and I&O: Vital Signs Temperature 97.7 F 06/04/25 23:16 Temperature Source Tympanic 06/04/25 23:16 Pulse 67 06/04/25 23:16 Respiratory Rate 17 06/04/25 23:16 Respiratory Effort Normal 06/03/25 17:50 Respiratory Depth Normal 06/03/25 17:50 Respiratory Pattern Normal 06/03/25 17:50 Blood Pressure 112/68 06/04/25 23:16 Blood Pressure Mean 82 06/04/25 23:16 Blood Pressure Position Sitting 06/03/25 14:13 Pulse Oximetry 100 06/04/25 23:16 Oxygen Delivery Method Room Air 06/04/25 19:06 Oxygen Flow Rate 0 06/04/25 19:06 Pain Level 0 06/04/25 18:10 Intake & Output 06/04/25 06/05/25 06/05/25 17:59 05:59 17:59 Intake Total 250 / 250 500 / 750 Balance 250 / 250 500 / 750 Intake: IV 250 / 250 500 / 750 Other: Urine Color Yellow Yellow Urine Appearance Clear Clear Urine Odor None None Data Completed and Pending Labs on day of discharge: Labs from last 24 hours 06/04/25 06/04/25 09:00 06:10 WBC 12.63 H RBC 4.56 Hgb 13.3 Hct 42.0 MCV 92 MCH 29.2 MCHC 31.7 L RDW 12.9 Plt Count 123 L MPV 10.7 Sodium 139 Potassium 4.2 Chloride 103 Carbon Dioxide 28.8 Anion Gap 7.2 BUN 12 Creatinine 0.7 Est GFR (CKD-EPI 2020) 120.74 Glucose 110 H Calcium 9.3 Magnesium 2.3 Random Vancomycin 20.5 Cancelled Preliminary micro results at discharge 06/03/25 15:00 Blood Blood Culture - Preliminary NO GROWTH 24 HOURS 06/03/25 14:45 Blood Blood Culture - Preliminary NO GROWTH 24 HOURS PFSH All Active Problems (Updated 06/03/25 @ 16:45 by Charlie Sorenson MD) Sepsis due to cellulitis (Acute) Cellulitis of neck (Acute) Facial cellulitis (Acute) No-show for appointment (Acute) Traumatic tear of left rotator cuff (Acute 09/04/21) Closed fracture of greater tuberosity of humerus (Acute 09/04/21) Active Problem List Closed fracture of greater tuberosity of humerus (Acute) Medical History Rapid palpitations Social History Smoking/Tobacco Use Status: Current every day Tobacco Type: cigarettes Tobacco: How many years used: 15 Smoking risk assessment performed?: Yes Alcohol Intake: former Drug use: Never Substance use type: does not use Housing: house Current gender identity: female Do you feel safe at home: Yes Do you feel safe in your relationship?: Yes Time Spent with Patient Time Spent with Patient: <45 minutes Time was spent: preparing to see the patient(eg.review tests), obtaining and/or reviewing separately otained hiistory, ordering medications,tests, procedures, referring, communicating with other health veterinarian laboratory animal care, indepentently interpreting results, counseling the patient and care coordination
== END 2025-06-05 03:15 | disposition left against medical advice (07) | DRG 872 ==
LOC: ER 16:39 → MS 17:27
PROVIDERS: Admitting Provider Family Medicine; Emergency Provider Emergency Medicine; Responsible Provider Family Medicine; Visit Provider Family Medicine
DX: A41.9 Sepsis, unspecified organism (principal); L03.211 Cellulitis of face; R00.0 Tachycardia, unspecified; Z59.82 Transportation insecurity; R45.89 Other symptoms and signs involving emotional state; F17.210 Nicotine dependence, cigarettes, uncomplicated
CPT/HCPCS: 00123; 36415; 70491; 80048; 80053; 81025; 85027; 87040; 94640; 96365; 96366; 96368; 99285; J1650; 80202; 83605; 83735; 85025; 99223; 99233; 99238; J1171; J2543; J3373

== ENCOUNTER 2025-06-22 03:37 | Emergency (ER) | payer SELFPAY ==
[2025-06-22 03:40] VITALS: BP 144/100; PULSE 109; RESP 18; TEMP 36.4; O2SAT 100
[2025-06-22 03:49] VITALS: RESP 18
[2025-06-22 03:59] VITALS: BP 144/100; PULSE 109; RESP 18; TEMP 36.4; O2SAT 100
[2025-06-22] MEDS: Normal Saline 1,000 ML 1000 ML IV (04:40)
[2025-06-22] MEDS: cefTRIAXone 1 GM/50 ML BAG IVPB (04:42)
[2025-06-22 05:03] LABS: BE (Venous) 1 mmol/L (-2-3); HCO3 (Venous) 26 mmol/L (23-28); O2 Sat (Venous) 97 %; TCO2 (Venous) 23 mmol/L (24-29); pCO2 (Venous) 42 mmHg (41-51); pO2 (Venous) 75 mmHg
[2025-06-22 05:09] LABS: Abs Immature Grans 0.03 10^3/uL (0.0-0.06); HCT 43.1 % (36.0-46.0); HGB 13.8 g/dL (11.2-15.7); Immature Grans % 0.2 %; MCH 28.9 pg (27.0-33.0); MCHC 32.0 % (32.0-36.0); MCV 90 fL (80-95); RBC 4.78 10^6/uL (3.93-5.22); RDW 12.8 % (11.7-14.6); RDW-SD 42.4 fL; WBC 12.31 10^3/uL (4.4-10.8)
[2025-06-22 05:18] LABS: HCG Qual (Serum) Negative
[2025-06-22] MEDS: VANCOMYCIN 1,000 MG in Normal Saline 250 ML 166.6666 MG IVPB (05:18)
[2025-06-22 05:20] LABS: Magnesium 2.0 mg/dL (1.8-2.4)
[2025-06-22 05:26] LABS: ALT 20 U/L (14-59); AST 10 U/L (15-37); Albumin 3.9 g/dL (3.4-5.0); Alkaline Phosphatase 99 U/L (46-116); Anion Gap 7.5 mmol/L (3-11); BUN 12 mg/dL (7-18); Bilirubin, Total 0.3 mg/dL (0.2-1.0); CO2 27.5 mmol/L (21.0-32.0); Calcium 9.2 mg/dL (8.5-10.1); Chloride 102 mmol/L (98-107); Estimated GFR 120.74 (mL/min/1.73m2); Glucose 107 mg/dL (74-106); Potassium 3.6 mmol/L (3.5-5.1); Sodium 137 mmol/L (136-145); Total Protein 7.8 g/dL (6.4-8.2)
--- NOTE | 2025-06-22 05:35 | DI.RAD_ITS ---
Exam(s) XR HAND LT COMPLETE EXAM: XR HAND LT COMPLETE CLINICAL HISTORY: swelling distal left thumb, eval FB. TECHNIQUE: 2D digital imaging was performed. COMPARISON: No exams were available for comparison FINDINGS: 3 views No evidence of acute fracture or dislocation nor abnormal soft tissue calcifications. There is no radiopaque foreign body. Bone density normal. No osseous lesions nor erosions. IMPRESSION: No acute osseous findings. No evidence of radiopaque foreign body. DATA REPOSITORY: RADIATION DOSE DELIVERED:
[2025-06-22] MEDS: Acetaminophen 500 MG TAB 1000 MG PO (05:38)
[2025-06-22] MEDS: Ketorolac 15 MG/ML VIAL IVP (05:38)
--- NOTE | 2025-06-22 05:57 | ED.GENADUL_ITS ---
Discharge Plan Disposition Patient Disposition: Home Condition: Good Discharge Details Clinical Impression: Cellulitis of hand Primary Care Provider: None,None ED Provider: Brianna Wisdom Home Meds and New Rx's Prescriptions: New sulfamethoxazole-trimethoprim [Bactrim DS] 800-160 mg tablet 1 tab PO Q12H 10 Days Qty: 20 0RF cephalexin 500 mg capsule 500 mg PO QID 10 Days Qty: 40 0RF Discontinued sulfamethoxazole-trimethoprim [Bactrim DS] 800-160 mg tablet 1 tab PO BID Qty: 10 0RF Discharge Instructions Instructions: Cellulitis (Skin Infection), Adult ED Additional Instructions: -Cephalexin four times a day for the next 10 days. -Bactrim twice a day for the next 10 days. -Call your primary care doctor in the morning to schedule an appointment for within the following 72 hours to followup on your visit here. -Return to the emergency department for new or worsening symptoms, including if your pain or swelling gets worse, the red streaking comes back, you have difficulty moving your thumb, you are unable to get your antibiotics at the pharmacy, you develop a fever, or if you have any other concerns. Infections in your hand can be very dangerious and can lead to long-term disability if not treated early. Discharge Data Discharge Date/Time-TO BE ENTERED AT DEPARTURE: 06/22/25 13:20 HPI General Mode of arrival: ambulatory . Date/Time Provider Initiated Documentation: 06/22/25 03:43 . Limitations to Documentation: no limitations . Information obtained by: patient . HPI Narrative: 30yo F with hx of cellulitis, MRSA infection, recent hospital admission for facial cellulits from which she left AMA, presenting for left thumb swelling and pain. Completed her oral antibiotics post-discharge and facial infection seems to have resolved. Two days ago got a splinter of some kind in the tip of her left thumb, thinks she was able to remove it. Since then has had worsening pain, swelling, and redness and now notices some red streaking down her forearm. Seen at [facility] earlier today and prescribed PO abx but the pharmacy was closed and so she has not had any doses. Pain in her left thumb, worse with movement, which radiates up her arm. Tip of thumb feels a little numb. No fevers. Otherwise in her usual state of health with no chills, other rash, nasuea, vomiting, or other concerns. Related Data Home Medications ?Medication ?Instructions ?Recorded ?Confirmed cephalexin 500 mg capsule 500 mg PO QID 10 days #40 ca ps 06/22/25 sulfamethoxazole 800 1 tab PO Q12H 10 days #20 ta bs 06/22/25 mg-trimethoprim 160 mg tablet (Bactrim DS) Previous Rx's ?Medication ?Instructions ?Recorded cephalexin 500 mg capsule 500 mg PO QID 10 days #40 ca ps 06/22/25 sulfamethoxazole 800 1 tab PO Q12H 10 days #20 ta bs 06/22/25 mg-trimethoprim 160 mg tablet (Bactrim DS) Allergies Allergy/AdvReac Type Severity Reaction Status Date / Time No Known Allergies Allergy Unverified 06/03/25 14:13 General Stated Complaint: GenMedical BRODERICK: 3 Exam Narrative Exam Narrative: General: Alert, well appearing, well nourished, in no acute distress. Head: Normocephalic, atraumatic Neck: Trachea midline, ?Neck supple. ENT: ?MMM.? Cardiac: ?RRR, no murmurs appreciated Resp: No respiratory distress. CTAB. Abd: ?Soft, non-distended, nontender Neurologic: GCS 15. ? Moves all extremities freely against gravity Extremities: ?Distal phalanx of left thumb slightly warm, erythematous, swollen. TTP. No fusiform swelling of digit, no tenderness over flexor sheath. Severe pain with movement at IP, minimal pain with movement at [facility]. Streaking from base of thumb to midforearm consistent with lymphangitis. Subjectively diminished sensation to light touch over distal phalanx. Course Vital Signs Vital signs: Vital Signs Temperature 36.4 C 06/22/25 03:40 Pulse 109 H 06/22/25 03:40 Respiratory Rate 18 06/22/25 03:40 Blood Pressure 144/100 H 06/22/25 03:40 Pulse Oximetry 100 06/22/25 03:40 Temperature 36.4 C 06/22/25 03:59 Temperature Source Tympanic 06/22/25 03:59 Pulse 109 H 06/22/25 03:59 Respiratory Rate 18 06/22/25 03:59 Respiratory Effort Normal, Non-Labored 06/22/25 05:44 Respiratory Depth Normal 06/22/25 05:44 Respiratory Pattern Normal 06/22/25 03:49 Blood Pressure 144/100 H 06/22/25 03:59 Blood Pressure Position Sitting 06/22/25 03:59 Pulse Oximetry 100 06/22/25 03:59 Oxygen Delivery Method Room Air 06/22/25 05:44 Oxygen Flow Rate 0 06/22/25 05:44 Pain Level 9 06/22/25 03:59 Lab/Test Results Lab/Test Results: 06/22/25 04:54 Blood Blood Culture - Pending 06/22/25 04:32 Blood Blood Culture - Pending Laboratory Tests Range/Units 06/22/25 04:35 WBC (4.4-10.8) 10^3/uL 12.31 H RBC (3.93-5.22) 10^6/uL 4.78 Hgb (11.2-15.7) g/dL 13.8 Hct (36.0-46.0) % 43.1 MCV (80-95) fL 90 MCH (27.0-33.0) pg 28.9 MCHC (32.0-36.0) % 32.0 RDW (11.7-14.6) % 12.8 Plt Count TNP MPV TNP Immature Gran % % 0.2 Neutrophils % % 72.4 Lymphocytes % % 19.6 Monocytes % % 6.6 Eosinophils % % 1.0 Basophils % % 0.2 Nucleated RBC % (0.0-0.3) % 0.0 Absolute Neutrophils (1.2-6.7) 10^3/uL 8.91 H Absolute Lymphocytes (1.2-3.4) 10^3/uL 2.41 Absolute Monocytes (0.1-0.8) 10^3/uL 0.81 H Absolute Eosinophils (0.0-0.7) 10^3/uL 0.12 Absolute Basophils (0.0-0.2) 10^3/uL 0.02 VBG pH (7.31-7.41) 7.40 VBG pCO2 (41-51) mmHg 42 VBG pO2 mmHg 75 VBG HCO3 (23-28) mmol/L 26 VBG Total CO2 (24-29) mmol/L 23 L VBG O2 Saturation % 97 VBG Base Excess (-2-3) mmol/L 1 VBG Lactate (<or=2.0) mmol/L 0.9 Sodium (136-145) mmol/L 137 Potassium (3.5-5.1) mmol/L 3.6 Chloride (98-107) mmol/L 102 Carbon Dioxide (21.0-32.0) mmol/L 27.5 Anion Gap (3-11) mmol/L 7.5 BUN (7-18) mg/dL 12 Creatinine (0.55-1.02) mg/dL 0.7 Est GFR (CKD-EPI 2020) (mL/min/1.73m2) 120.74 Glucose (74-106) mg/dL 107 H Calcium (8.5-10.1) mg/dL 9.2 Magnesium (1.8-2.4) mg/dL 2.0 Total Bilirubin (0.2-1.0) mg/dL 0.3 AST (15-37) U/L 10 L ALT (14-59) U/L 20 Alkaline Phosphatase (46-116) U/L 99 Total Protein (6.4-8.2) g/dL 7.8 Albumin (3.4-5.0) g/dL 3.9 Serum HCG, Qual Negative Medical Decision Making 30yo F with hx of cellulitis, MRSA infection, recent hospital admission for facial cellulitis from which she left AMA, presenting for left thumb swelling and pain. Two days ago got a splinter of some kind in the tip of her left thumb; since then has had worsening pain, swelling, and redness and now notices some red streaking down her forearm. Systemically well. Slightly tachcyardiac to low 100's on arrival, vital signs otherwise reassuring, afebrile. Non-toxic on exam, does have tenderness/swelling/erythema to distal phalanx of left thumb. Exam not suggestive of flexor tenosynovitis. She does have lymphangitits extending to midforearm. Will give IVFB and IV ceftriaxone/vancyomycin while awaiting results of workup. Blood cultures sent. Low threshold for admission for hand infection. Labs reviewed as below, CBC with mild leukcytosis at 12.3 (not worse than hospital discharge 06/04), CMP reassuring with no actionable abnormalities, Mg normal, VBG normal, lactate normal, negative. XR independenly reviewed; no foreign body on my view, radiology read with no fracture or evident foreign body. On reassessment HR improved to 80's. Patient reports her symptoms have much improved already (ceftriaxone completed, vanco infusing) and on repeat exam her pain/swelling/erythema have all decreased and streaking is no longer visible. Had some subjectively diminished sensation to light tough at the distal phalanx on arrival which has resolved now that it is less swollen. She would much prefer to go home rather than be admitted/observed for further IV antibiotics and given her rapid improvement and overall reassuring labs I feel this is not unreasonable. Will complete vancomycin and discharge home on bactrim and cephalexin. Discharged home; discharge instructions and strict return precautions were reviewed with patient who verbalized understanding. The danger of untreated worsening infection in the hand leading to permanent disability was stressed, as was the risk of from worsening infection/sepsis. All questions were answered and she is in full agreement with the plan. Lab Data Lab results reviewed: Yes I reviewed the patient's lab results. Labs: 06/22/25 04:54 Blood Blood Culture - Pending 06/22/25 04:32 Blood Blood Culture - Pending Laboratory Tests Range/Units 06/22/25 04:35 WBC (4.4-10.8) 10^3/uL 12.31 H RBC (3.93-5.22) 10^6/uL 4.78 Hgb (11.2-15.7) g/dL 13.8 Hct (36.0-46.0) % 43.1 MCV (80-95) fL 90 MCH (27.0-33.0) pg 28.9 MCHC (32.0-36.0) % 32.0 RDW (11.7-14.6) % 12.8 Plt Count TNP MPV TNP Immature Gran % % 0.2 Neutrophils % % 72.4 Lymphocytes % % 19.6 Monocytes % % 6.6 Eosinophils % % 1.0 Basophils % % 0.2 Nucleated RBC % (0.0-0.3) % 0.0 Absolute Neutrophils (1.2-6.7) 10^3/uL 8.91 H Absolute Lymphocytes (1.2-3.4) 10^3/uL 2.41 Absolute Monocytes (0.1-0.8) 10^3/uL 0.81 H Absolute Eosinophils (0.0-0.7) 10^3/uL 0.12 Absolute Basophils (0.0-0.2) 10^3/uL 0.02 VBG pH (7.31-7.41) 7.40 VBG pCO2 (41-51) mmHg 42 VBG pO2 mmHg 75 VBG HCO3 (23-28) mmol/L 26 VBG Total CO2 (24-29) mmol/L 23 L VBG O2 Saturation % 97 VBG Base Excess (-2-3) mmol/L 1 VBG Lactate (<or=2.0) mmol/L 0.9 Sodium (136-145) mmol/L 137 Potassium (3.5-5.1) mmol/L 3.6 Chloride (98-107) mmol/L 102 Carbon Dioxide (21.0-32.0) mmol/L 27.5 Anion Gap (3-11) mmol/L 7.5 BUN (7-18) mg/dL 12 Creatinine (0.55-1.02) mg/dL 0.7 Est GFR (CKD-EPI 2020) (mL/min/1.73m2) 120.74 Glucose (74-106) mg/dL 107 H Calcium (8.5-10.1) mg/dL 9.2 Magnesium (1.8-2.4) mg/dL 2.0 Total Bilirubin (0.2-1.0) mg/dL 0.3 AST (15-37) U/L 10 L ALT (14-59) U/L 20 Alkaline Phosphatase (46-116) U/L 99 Total Protein (6.4-8.2) g/dL 7.8 Albumin (3.4-5.0) g/dL 3.9 Serum HCG, Qual Negative Quality:SDOH Health Related Social Needs: Health related social needs transpo insecurity lonely/ isolated PFSH All Active Problems (Updated 06/22/25 @ 06:12 by Brianna Wisdom MD) Cellulitis of hand (Acute) Sepsis due to cellulitis (Acute) Cellulitis of neck (Acute) Facial cellulitis (Acute) No-show for appointment (Acute) Traumatic tear of left rotator cuff (Acute 09/04/21) Closed fracture of greater tuberosity of humerus (Acute 09/04/21) Active Problem List Closed fracture of greater tuberosity of humerus (Acute) Medical History Rapid palpitations Social History Smoking/Tobacco Use Status: Current every day Tobacco Type: cigarettes Tobacco: How many years used: 17 Smoking risk assessment performed?: Yes Alcohol Intake: former Drug use: Never Substance use type: does not use Housing: house Current gender identity: female Do you feel safe at home: Yes Do you feel safe in your relationship?: Yes
[2025-06-22 05:59] VITALS: PULSE 88; O2SAT 99
[2025-06-22 06:46] VITALS: PULSE 90; O2SAT 100
--- NOTE | 2025-06-22 08:08 | DI.VRAD_ITS ---
PROCEDURE INFORMATION: Exam: XR Left Hand Exam date and time: 06/22/2025 5:35 AM Age: 30 years old Clinical indication: Fingers and hand; Swelling distal left thumb, eval fb TECHNIQUE: Imaging protocol: Radiologic exam of the left hand. Views: 3 or more views. COMPARISON: MR UPPER JOINT LT WO 09/19/2021 2:18 PM FINDINGS: Bones/joints: No significant bony or articular abnormality is identified. Soft tissues: There is mild soft tissue swelling about the thumb. No radiopaque foreign body is identified. IMPRESSION: Mild soft tissue swelling about the thumb without radiopaque foreign body identified. Dictated and Authenticated by: Hernando Cagle MD. Orderin Alyx Reed MD
== END 2025-06-22 13:20 | disposition home or self-care (01) ==
PROVIDERS: Emergency Provider Student in an Organized Health Care Education/Training Program
DX: L03.012 Cellulitis of left finger (principal); Z59.82 Transportation insecurity; Z60.8 Other problems related to social environment; I10 Essential (primary) hypertension; Z86.14 Personal history of Methicillin resistant Staphylococcus aureus infection
CPT/HCPCS: 36415; 80053; 82805; 87040; 96365; 96366; 96367; 96375; 99284; 73130; 83605; 83735; 84703; 85025; J0696; J1885; J3373

== ENCOUNTER 2025-06-24 07:56 | Emergency (ER) | payer SELFPAY ==
[2025-06-24 08:01] VITALS: BP 159/106; PULSE 104; RESP 12; TEMP 37; O2SAT 99
--- NOTE | 2025-06-24 08:12 | W.ED.GENAD ---
Discharge Plan Disposition Patient Disposition: Eloped Condition: Stable Discharge Details Clinical Impression: Cellulitis of left thumb Primary Care Provider: None,None ED Provider: Anjel Tai Home Meds and New Rx's Prescriptions: Continued cephalexin 500 mg capsule 500 mg PO QID 10 Days Qty: 40 0RF sulfamethoxazole-trimethoprim [Bactrim DS] 800-160 mg tablet 1 tab PO BID Discharge Instructions Additional Instructions: Patient eloped HPI General Date/Time Provider Initiated Documentation: 06/24/25 08:06. HPI Narrative: 30 year-old female presents to ED today by POV/ambulating with a chief complaint of L thumb infection- recheck on cephalexin, now having increased redness swelling/purulent drainage with onset ove the past 3-5 days. Quality described as painful to touch, no radiation to fever, endorses mild pinkness on her arm, denies fever, nausea, weakness. Severity is described as moderate. Palliating factors include cephalexin without relief. Provoking factors include nothing specific. Events leading up to the incident/Associated Symptoms: Patient endorses MRSA history. Patient not anticoagulated. Related Data Home Medications ?Medication ?Instructions ?Recorded ?Confirmed cephalexin 500 mg capsule 500 mg PO QID 10 days #40 caps 06/22/25 06/24/25 sulfamethoxazole 800 1 tab PO BID 06/24/25 06/24/25 mg-trimethoprim 160 mg tablet (Bactrim DS) Previous Rx's ?Medication ?Instructions ?Recorded cephalexin 500 mg capsule 500 mg PO QID 10 days #40 caps 06/22/25 Allergies Allergy/AdvReac Type Severity Reaction Status Date / Time No Known Allergies Allergy Verified 06/24/25 08:04 General Stated Complaint: Cellulitis BRODERICK: 4 Review of Systems All systems reviewed & are unremarkable except as noted in HPI and below Exam Narrative Exam Narrative: GENERAL APPEARANCE: Well-nourished, non-toxic, awake and alert, atraumatic, no acute distress. SKIN: Warm, pink, dry, redness and swelling with an open lesion on the left thumb finger pad, no lymphadenitis, left radial pulse 2+, mild biofilm of paronychia on the left nail HEAD: Normocephalic, atraumatic, normal hair distribution for gender/age. EYES: Normal conjunctiva, no exudates on lids/lashes. ENT: Nares patent, no circumoral cyanosis, no facial swelling NECK: Supple, trachea midline, painless cervical ROM. LUNGS/CHEST: Non-labored respirations, normal A/P diameter, symmetrical expansion, no chest wall deformity HEART (CV/PV): No peripheral edema, no JVD. ABDOMEN: Soft, non-distended, no guarding. MSK: Normal ROM, no swelling/deformity to bilateral UEs or LEs, moving all extremities without weakness, no cyanosis, spine midline without tenderness, normal curvature. NEURO: Mental Status AAOx4 - alert to person, place, time, events No facial droop, no forehead involvement. Motor: No focal weakness - strength 5/5 in bilateral UEs and LEs, proximal and distal, symmetric. Sensory: sensation intact to light touch globally. Gait normal: patient ambulated without ataxia into ED room. PSYCH: euthymic, cooperative, pleasant, appropriate speech Course Vital Signs Vital signs: Vital Signs Temperature 37.0 C 06/24/25 08:01 Pulse 104 H 06/24/25 08:01 Respiratory Rate 12 06/24/25 08:01 Blood Pressure 159/106 H 06/24/25 08:01 Pulse Oximetry 99 06/24/25 08:01 Temperature 37.0 C 06/24/25 08:01 Temperature Source Tympanic 06/24/25 08:01 Pulse 104 H 06/24/25 08:01 Respiratory Rate 12 06/24/25 08:01 Blood Pressure 159/106 H 06/24/25 08:01 Blood Pressure Position Sitting 06/24/25 08:01 Pulse Oximetry 99 06/24/25 08:01 Oxygen Delivery Method Room Air 06/24/25 08:01 Oxygen Flow Rate 0 06/24/25 08:01 Medical Decision Making This dictation utilizes [id number] dictation software and may contain unedited grammatical errors. 30 year-old female presents to ED today by POV/ambulating with a chief complaint of L thumb infection- recheck on cephalexin, now having increased redness swelling/purulent drainage with onset ove the past 3-5 days. Quality described as painful to touch, no radiation to fever, endorses mild pinkness on her arm, denies fever, nausea, weakness. Severity is described as moderate. Palliating factors include cephalexin without relief. Provoking factors include nothing specific. Events leading up to the incident/Associated Symptoms: Patient endorses MRSA history. Patients' medical history: Cellulitis. Family and social history: Noncontributory. Pertinent exam findings / vital signs include left thumb erythema to finger pad with lesion of active drainage, mild biofilm to the nail fold resembling paronychia, no lymphadenitis of the arm, left radial pulse 2+, sensation intact. Differential / pathologies of concern include cellulitis, MRSA, sepsis. Diagnostic studies of: - CBC, CMP, lactate, blood cultures, wound culture. - Wound culture taken, one set blood cultures taken- patient then stated she had to use the bathroom and eloped. Interventions of: - Plan for IV vancomycin with likely discharge on p.o. doxycycline and to continue cephalexin but patient eloped. ED Course/Assessment/Plan: 30-year-old female who was started on Keflex for cellulitis of her left thumb 3 days ago has been seen at multiple ERs, states that his cellulitis is not working but did have active drainage from her thumb, counseled her that we would need to do some basic studies like blood work to make sure that this infection is not spreading systemically, the patient verbalized understanding of this plan I stated that we would take a wound culture to confirm a likely MRSA diagnosis with a plan to give her 1 dose of IV antibiotics and transition to p.o. doxycycline likely. Patient states she is familiar with this treatment and has worked in the past, she was uncomfortable with the process of getting blood cultures once that was taken before she asked for IV to be removed, wound culture was taken and then she stated she needs to go the bathroom and left without telling anyone. Findings not consistent with lymphadenitis, fever. Disposition of Cellulitis of Left Thumb. Patient verbalized understanding of the plan and return to ED criteria and engaged in shared decision making. Medical Records Medical records reviewed: Yes I reviewed the patient's medical records. Lab Data Lab results reviewed: Yes I reviewed the patient's lab results. Quality:SDOH Health Related Social Needs: Health related social needs transpo insecurity lonely/isolated PFSH All Active Problems (Updated 06/24/25 @ 09:09 by TERESE Cueva) Cellulitis of left thumb (Acute) Cellulitis of hand (Acute) Sepsis due to cellulitis (Acute) Cellulitis of neck (Acute) Facial cellulitis (Acute) No-show for appointment (Acute) Traumatic tear of left rotator cuff (Acute 09/04/21) Closed fracture of greater tuberosity of humerus (Acute 09/04/21) Active Problem List Closed fracture of greater tuberosity of humerus (Acute) Medical History Rapid palpitations Social History Smoking/Tobacco Use Status: Current every day Tobacco Type: cigarettes Tobacco: How many years used: 17 Smoking risk assessment performed?: Yes Alcohol Intake: former Drug use: Never Substance use type: does not use Housing: house Current gender identity: female Do you feel safe at home: Yes Do you feel safe in your relationship?: Yes
[2025-06-24] MEDS: Acetaminophen 500 MG TAB 1000 MG PO (08:26)
[2025-06-24] MEDS: Ibuprofen 400 MG TAB PO (08:27)
--- NOTE | 2025-06-27 08:47 | NUR.NOTE ---
Accesed Pt chart to see if Pt was prescribed an antibiotic. The patient was advised to continue taking antibiotics that were prescribed in the previous visit. This was noted on the Specimen Report and given to the providers.
--- NOTE | 2025-06-28 08:07 | ED.FU.B_ITS ---
Date of service: 06/28/25 Time of Service: 08:07 Follow Up Plan: Patient's wound culture results have come back positive for MRSA. I reviewed the note, and it appears that the patient left early/eloped during her stay after receiving IV antibiotics and started her doxycycline. There was a old prescription for Keflex and Bactrim, but it was not overly clear if there was a new prescription for doxycycline for the MRSA. I did contact the patient today on 06/28/2025 as previous calls appear to have been made. Patient states that her thumb is doing much better, and improving. She denies fever or chills. She states very specifically that she was given a prescription for doxycycline and has been taking it as prescribed. I discussed with her that I did not see a record of this prescription, but she confirms that she does have an extended course for the Doxy and she is taking it. With the improvement of her symptoms, no fever or other complaints, I recommended that she continue to take the medication. I encouraged her to return if she had any questions concerns or noted any changes. I have extensively reviewed the treatment plan and discharge instructions with the patient. I have addressed all patient concerns at this time. The patient was made aware of what symptoms to monitor for that would warrant a return to the emergency department. Discussed the plan with the patient, they demonstrate verbal understanding and agreement with our assessment and plan at this time. The documentation in this chart was dictated using [employer] dictation software. Please excuse any dictation errors.
== END 2025-06-24 08:40 | disposition left against medical advice (07) ==
PROVIDERS: Emergency Provider Physician Assistant
DX: L03.012 Cellulitis of left finger (principal); Z53.20 Procedure and treatment not carried out because of patient's decision for unspecified reasons; Z59.82 Transportation insecurity; Z60.8 Other problems related to social environment
CPT/HCPCS: 99283 ×2; 36415; 80053; 87040; 87077; 83605; 85025; 87070; 87186; 87205